=== PATIENT | male | born 1970 | race Caucasian/White ===

== ENCOUNTER 2020-09-15 05:25 | Observation (INO) ==
--- NOTE | 2020-08-29 16:31 | PAT Medication Instructions ---
Medication Instructions Date of Service August 29, 2020 Home Medications albuterol [Ventolin] 90 mcg INHALATION DAILY PRN losartan 100 mg PO PM meloxicam [Mobic] 15 mg PO DAILY mirtazapine [Remeron] 30 mg PO DAILY ASK your surgeon for instructions meloxicam [Mobic] 15 mg PO DAILY Take morning of surgery With a small sip of water, OTHERWISE NOTHING TO EAT OR DRINK AFTER MIDNIGHT: albuterol [Ventolin] 90 mcg INHALATION DAILY PRN (use if needed; please bring rescue inhaler with you to hospital day of surgery if possible) mirtazapine [Remeron] 30 mg PO DAILY Take evening before surgery albuterol [Ventolin] 90 mcg INHALATION DAILY PRN (if needed) losartan 100 mg PO PM Other Notes If you have any questions please call us at [phone] or [phone] or [phone] or [phone]
--- NOTE | 2020-08-31 14:37 | Anesthesiology Consultation ---
Date of Service August 31, 2020 Assessment & Plan (1) Encounter for pre-operative examination: COVID screening: Per assessment on 08/31: Travel screen negative, no known COVID- 19 positive contacts or current COVID-19 related symptoms. Surgeon arranging preop COVID testing. Awaiting results. Chart Review Chart Review: Acceptable Risk for Surgery and Patient seen in Pre Admission Testing Teaching & Discussion Pre-Anesthesia Teaching/Discussion Notes: Instructed NPO after midnight before surgery,except medications with 15 cc of water. Medication instructions provided according to the PAT guidelines. History Surgery Operation Date: 09/15/20 12:30 Proposed Procedures p Right Total Hip Arthroplasty Anterior - Edgar Gross DO Height/Weight Height: 5 ft 9 in Weight: 72.9 kg Allergies Allergy/AdvReac Type Severity Reaction Status Date / Time MIKE Inhibitors Allergy Intermediate Facial Verified 08/31/20 14:37 swelling cat dander Allergy Intermediate Sneezing Verified 08/28/20 15:05 nickel Allergy Mild Rash Verified 08/28/20 15:05 Medications Home Medications Medication Instructions Recorded Confirmed Last Taken albuterol [Ventolin] 90 mcg INHALATION DAILY PRN 08/28/20 08/28/20 Unknown losartan 100 mg PO PM 08/28/20 08/28/20 Unknown meloxicam [Mobic] 15 mg PO DAILY 08/28/20 08/28/20 Unknown mirtazapine [Remeron] 30 mg PO DAILY 08/28/20 08/28/20 Unknown Past Medical History Medical History Anxiety Asthma Seasonal, stable Depression Diverticular disease 2004 Hyperlipidemia Osteoarthritis 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) Exercise / Class Metabolic Activity II 4-5 Yardwork/Stairs/Walk up hill (one FS (no CP, no SOB)) Past Surgical History Surgical History History of cholecystectomy History of colon resection due to diverticulum rupture History of colonoscopy [place] teeth extracted Past Anesthesia History No Hx of Anesthesia Complications and No Family Hx of Anesthesia Complications History of PONV No Hx of PONV and No Hx of Motion Sickness Social History Smoking Status: Current every day smoker tobacco type: cigarettes Smoking cigarettes per day: 18 (tobacco use x 30 years) Do You Dip or Chew Tobacco: No Hx Alcohol Use: No Hx Substance Use: No substance use type: does not use Review of Systems Patient denies chest pain, shortness of breath, dyspnea on exertion, fever, chills, cough, wheezing, palpitations. Physical Exam Vital Signs VITALS BP 100/68- Patient reports hx low-normal BP, asymptomatic P 79 TEMP 98.7 SP02 95%RA RESP 16 PHYSICAL Full cervical extension range of motion. Full TMJ range of motion. TMD 3 finger breaths Mallampati Score 3 Dentition: upper full denture, several missing teeth on lower Lungs: clear throughout to auscultation Cardiac: regular rate and rhythm, no murmurs noted Spine: normal Carotid arteries: negative bruit Extremities: no edema Lab Results Anesthesia Preop Results Results Anesthesia Widget: WBC 11.11 K/uL (4.8-10.8) H 08/31/20 Hgb 15.1 g/dL (14.0-18.0) 08/31/20 Hct 43.4 % (42-52) 08/31/20 Plt 185 K/uL (130-400) 08/31/20 Na 139 mmol/L (136-145) 08/31/20 K 4.6 mmol/L (3.5-5.1) 08/31/20 Cl 109 mmol/L (98-107) H 08/31/20 CO2 24 mmol/L (21-32) 08/31/20 BUN 16 mg/dl (7-18) 08/31/20 Creat 0.76 mg/dl (0.6-1.4) 08/31/20 Glucose Level 96 mg/dl (70-99) 08/31/20 PT 10.7 Seconds (9.0-12.0) 08/31/20 PTT 25.4 Seconds (21.0-31.0) 08/31/20 INR 1.1 (0.9-1.1) 08/31/20 HA1c 5.6 % (4.5-5.6) 08/31/20 Blood Type A Positive 08/31/20 Antibody Screen NEGATIVE 08/31/20 Lab Comments: Elevated WBC > preop labs to be forwarded to PCP for continuity of care. Patient seeing PCP for preop evaluation prior to surgery. Testing Electrocardiogram Date: 08/31/20 NSR at 71bpm. unconfirmed report. Chest X-Ray Date: 08/31/20 FINDINGS: The cardiac and mediastinal contours are normal. There is no evidence of focal pulmonary consolidation. There is no evidence of failure. No pleural effusions are visualized.[There are surgical clips within the right upper quadrant consistent with a prior cholecystectomy. There are old rib fractures. IMPRESSION: No active disease in the chest.
--- NOTE | 2020-09-14 16:27 | History & Physical Report ---
Date of Service September 14, 2020 Assessment & Plan (1) Osteoarthritis of right hip: Plan: Schedule a right hip anterior approach CONNOR for 09.15.20. All potential risks, benefits, complications, alternatives, and rehab have been discussed with the patient and he wishes to proceed. Plan for ASA 81 mg BID x 4 wks post op for DVT prophylaxis. History of Present Illness Chief Complaint: Right hip/groin pain Primary Care Provider: Eulalio Medina MD This is a patient with a long hx of right hip and groin pain. He had been chiquis delbert conservatively for right hip DJD but has failed all conservative management. He is now being set up for a right CONNOR. Allergies Allergy/AdvReac Type Severity Reaction Status Date / Time MIKE Inhibitors Allergy Intermediate Facial Verified 08/31/20 14:37 swelling cat dander Allergy Intermediate Sneezing Verified 08/28/20 15:05 nickel Allergy Mild Rash Verified 08/28/20 15:05 Home Medications Medication Instructions Recorded Confirmed Type albuterol 90 mcg/actuation aerosol 90 mcg INHALATION DAILY PRN 08/28/20 08/28/20 History inhaler losartan 100 mg tablet 100 mg PO PM 08/28/20 08/28/20 History meloxicam 15 mg tablet (Mobic) 15 mg PO DAILY 08/28/20 08/28/20 History mirtazapine 30 mg tablet (Remeron) 30 mg PO DAILY 08/28/20 08/28/20 History Past Med/Surg History Medical History Anxiety Asthma Seasonal, stable Depression Diverticular disease 2004 Hyperlipidemia Osteoarthritis 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) Surgical History History of cholecystectomy History of colon resection due to diverticulum rupture History of colonoscopy [place] teeth extracted Social History Smoking Status: Current every day smoker Cigarettes Per Day: 18 (tobacco use x 30 years); Second Hand Exposure: No; Hx Alcohol Use: No Hx Substance Use: No Preferred Language: [place] Communication Ability: Effective Skein Dyer Required: No Beliefs That Will Affect Care: None Current Living Situation: Significant Other Feels Safe at Home: Yes Assistive Devices: Contacts, Denture - Upper and Glasses Physical Exam Constitutional: WD/WN, vitals as above ENMT: external ear and nose normal, oropharynx normal Respiratory: normal respiratory effort, lungs clear to auscultation Cardiovascular: RRR, no murmur, no edema Gastrointestinal (Abdomen): normal bowel sounds, soft, nontender, no hepatosplenomegaly Musculoskeletal: Hip: + hip ROM with crepitation (right), + joint line tenderness (right groin), + STANISLAW test positive (right) and + FADIR test positive (right); no skin erythema and no ecchymosis Skin: no rashes, warm and dry Neurologic: normal touch/pain/proprioception Psychiatric: A+Ox3, euthymic affect Speech: normal rate/rhythm/volume of speech Lymphatic: no cervical or axillary lymphadenopathy
[2020-09-15] MEDS ORDERED: ceFAZolin 1000MG 1,000 MG/7.5 ML SYR IV SCH (06:00)
[2020-09-15] MEDS ORDERED: ROPIVACAINE 0.5% HCL/PF 150 MG, BUPIVACAINE 0.75% MPF 20 ML, EPINEPHrine 30MG/30ML (OR ... INSTIL SCH (06:00)
[2020-09-15] MEDS ORDERED: CeleBREX 200 MG CAP PO SCH (06:00)
[2020-09-15] MEDS ORDERED: ACETAMINOPHEN 500 MG TAB PO SCH (06:00)
[2020-09-15] MEDS ORDERED: LR 500ML BOLUS, THEN 15ML/HR IV SCH (06:00)
[2020-09-15] MEDS ORDERED: FAMOTIDINE 20 MG TAB PO SCH (06:00)
[2020-09-15] MEDS ORDERED: dexAMETHasone 4 MG TAB PO SCH (06:00)
[2020-09-15] MEDS ORDERED: GABAPENTIN 900 MG DOSE PO SCH (06:00)
[2020-09-15] MEDS ORDERED: METOCLOPRAMIDE HCL 10 MG TABLET PO SCH (06:00)
[2020-09-15] MEDS ORDERED: BUPIVACAINE 0.5 % 5 MG/1 ML PF 10ML VIAL ONE (06:24)
[2020-09-15] MEDS ORDERED: GLYCOPYRROLATE 0.2 MG/ML VIAL ONE (06:57)
[2020-09-15] MEDS ORDERED: PROPOFOL IV EMULSION 10 MG/ML 20 ML VIAL IV ONE ×8 (06:57→11:16)
[2020-09-15] MEDS ORDERED: LIDOCAINE 2% 2 ML VIAL/AMP(20MG/ML) INFIL ONE (06:57)
[2020-09-15] MEDS ORDERED: MIDAZOLAM HCL 1 MG/ML 2ML VIAL ONE ×2 (06:57→10:22)
[2020-09-15] MEDS ORDERED: fentaNYL citrate 100 MCG/2 ML VIAL ONE ×2 (06:58→10:48)
--- NOTE | 2020-09-15 07:17 | History & Physical Bridge Note ---
Date of Service September 15, 2020 History & Physical Bridge Note I have examined the patient, reviewed the History & Physical and in the interval since the performance of the History & Physical I have noted the following changes of clinical significance: no changes noted
[2020-09-15] MEDS ORDERED: ORTHO JOINT ANESTHETIC ONE (07:37)
[2020-09-15] MEDS ORDERED: ePHEDrine sulfate 50 MG/ML AMP IV PRN (07:49)
[2020-09-15] MEDS ORDERED: ATROPINE SULFATE 0.1 MG/ML 10ML SYR IV PRN (07:49)
[2020-09-15 08:26] LABS: Appearance Urine Clear (Clear); Blood Urine Negative (Negative); Color Urine Dark Yellow; Glucose Urine UA Negative (Negative); Ketones Urine Trace (Negative); Leukocyte Esterase Urine Negative (Negative); Nitrite Urine Negative (Negative); Protein Urine Negative (Negative); Specific Gravity Urine 1.032 (1.000-1.030); Urobilinogen Urine Negative (Negative); pH Urine 5.5 (4.5-7.5)
[2020-09-15 08:27] LABS: Bilirubin Urine 1+ (Negative)
[2020-09-15] MEDS ORDERED: ePHEDrine sulfate 50 MG/ML SYR ONE (09:13)
--- NOTE | 2020-09-15 11:12 | Post Operative Brief Note ---
Immediate Post Op Note v1 Date of Surgery September 15, 2020 Pre & Post Diagnosis Operation Date: 09/15/20 07:15 Pre-Op Diagnosis: Unilateral Primary Osteoarthritis, Right Hip Post-Op Diagnosis: Unilateral Primary Osteoarthritis, Right Hip I identified the patient and participated in the time-out.: Yes Procedure Operation Date: 09/15/20 07:15 Actual Procedures p Right Total Hip Arthroplasty Anterior(Right) - Edgar Gross DO Surgeon Christian Gross DO Electronic Field Service Engineer Severiano Bergeron DO and Edgar Mayberry PA-C Estimated Blood Loss 150 Findings Consistent with Post-Op Diagnosis Fluids See anesthesia report Anesthesia Type Spinal MAC Complications none Disposition Disposition: Recovery Room Overlapping Procedure I was present for: the critical portions of procedure. I was immediately available: during the entire case. Back up surgeon: was not required during procedure.
--- NOTE | 2020-09-15 11:16 | Operative Report ---
Post Operative Report Pre & Post Diagnosis Operation Date: 09/15/20 07:15 Pre-Op Diagnosis: Unilateral Primary Osteoarthritis, Right Hip Post-Op Diagnosis: Unilateral Primary Osteoarthritis, Right Hip I identified the patient and participated in the time-out.: Yes Procedure Operation Date: 09/15/20 07:15 Actual Procedures p Right Total Hip Arthroplasty Anterior(Right) - Edgar Gross DO Surgeon Edgar Gross DO Pin Feather Machine Operator Severiano Bergeron DO and Edgar Mayberry PA-C Estimated Blood Loss 150 Findings Consistent with Post-Op Diagnosis Fluids See anesthesia report Specimens Femoral head Anesthesia Type Spinal MAC Complications none Disposition Disposition: Recovery Room Indications The patient is a 50-year-old male who presents with severe progressive right hip DJD who has failed outpatient conservative treatments. I indicated the patient for a anterior total hip replacement and the risks and benefits were explained in detail which include but not limited to infection, bleeding, blood clot, damage to surrounding bone, nerves, vessels, soft tissue, hip dislocation, failure of the prosthesis, leg length discrepancy, need for additional surgery and . The patient agreed to proceed with replacement of the hip and informed consent was obtained. Appropriate clearances were obtained. Description of Procedure COMPONENTS USED: Leslie [employer] Nephew R3 acetabulum size 52 , Eugenie Biomet Avenir femur size 4 high offset, femoral head 36-3.5 ceramic, liner 52x36, acetabular screw 35 mm x 1, 25 mm x 1. DESCRIPTION OF PROCEDURE: Following satisfactory spinal anesthesia, the patient was placed supine on the OR table. The left leg was placed in the well leg jauregui and the right leg in the traction device. The right leg was prepared with ChloraPrep and draped sterilely. A surgical timeout was performed, patient identified and site gabby verified. Appropriate antibiotics were given. A standard anterior approach in the interval between the sartorius and tensor muscles was performed. Dissection was carried down through subcutaneous tissues. Electrocautery was utilized for hemostasis. Circumflex femoral v essels were identified and ligated. The anterior capsular fat pad was removed and the capsulotomy was performed revealing the arthritic femoral neck and head. A femoral neck cut was made with reciprocating saw and the bone fragments removed. The acetabular self-retraining retractor was placed. Acetabular reaming was completed under fluoroscopic guidance, a 52 shell was impacted into an anatomic position and secured with a acetabular screw. Local anesthetic was placed and following irrigation, the polyethylene liner was placed. Next exposure to the proximal femur was obtained and the femur was placed into position of external rotation, extension and adduction. Femoral canal was prepared up to the size 4 high offset. Trial reduction with a 36-3.5 neck length head showed good soft tissue tension, leg lengths restored, and good fit and fill of the proximal canal using fluoroscopic landmarks. The hip was dislocated. The trial component was removed. The final implant was placed. The hip was irrigated with sterile saline solution and reduced. A Betadine soak was performed. After 3 minutes, the hip was once more irrigated with copious sterile saline solution with bacitracin. Cyndee-incisional soft tissue was injected utilizing [place] Orthomix which includes a combination of Ropivicaine 0.5% 150mg, Bupivicaine 0.5%/Epinephrine 1:200,000 30ml, Toradol 30mg, Dexamethasone 4mg, Ketamine 10mg, Clonidine 100mcg and NSS 30ml solution. The capsule was then closed with 1-0 Vicryl interrupted figure of eight sutures. The fascia was closed with a running suture of #1 Vicryl, the subcutaneous tissues with 2-0 Vicryl and the skin was closed with ihsan and a sterile dry dressing was applied which included brigida incisional VAC. The patient tolerated the procedure well and was transported to PACU in stable condition. Due to the complex nature of the procedure, the entire surgery was performed with the operational assistance of Severiano Bergeron DO and Edgar Mayberry PA-C. The assistant director of security, under direct supervision, was involved in the actual performance of all aspects of the surgical procedure including patient positioning, hemostasis, tissue retraction, instrument management and wound closure. I attest to the content of the Intraoperative Record and any orders documented therein. Any exceptions are noted below.
--- NOTE | 2020-09-15 11:21 | Post Operative Brief Note ---
Immediate Post Op Note v1 Date of Surgery September 15, 2020 Pre & Post Diagnosis Operation Date: 09/15/20 07:15 Pre-Op Diagnosis: Unilateral Primary Osteoarthritis, Right Hip Post-Op Diagnosis: Unilateral Primary Osteoarthritis, Right Hip I identified the patient and participated in the time-out.: Yes Procedure Operation Date: 09/15/20 07:15 Actual Procedures p Right Total Hip Arthroplasty Anterior using Leslie [employer] Nephew acetabular shell and HDPE liner, Eugenie stem and ceramic head (Right) - Edgar Gross DO Surgeon Edgar Gross DO Strategic Planning Consultant Severiano Bergeron DO and Edgar Mayberry PA-C Estimated Blood Loss 150 Findings Consistent with Post-Op Diagnosis Specimens Bone and tissue right hip Anesthesia Type Spinal MAC Complications none Disposition Accompanied Patient To Recovery: No
--- NOTE | 2020-09-15 11:27 | Fluoroscopy Report ---
FL hip RT 1V HISTORY: 50 years-old Male RIGHT ANTERIOR TOTAL HIP right hip total joint arthroplasty COMPARISON: None TECHNIQUE: 2 spot fluoroscopic images of the right hip were obtained utilizing 1 minute and 22.9 seco nds fluoroscopy time FINDINGS: Right hip total joint arthroplasty. No unexpected opaque foreign body or acute fracture identified. L eft hip osteoarthritis. IMPRESSION: Fluoroscopic assistance as above. ACT 112: Negative or not required by law. The above report was generated using voice recognition software. It may contain grammatical, syntax o r spelling errors. Electronically signed by: Bulmaro Felder M.D. 09/15/2020 11:26 AM
[2020-09-15] MEDS ORDERED: fentaNYL citrate 100 MCG/2 ML VIAL IV PRN (11:59)
--- NOTE | 2020-09-15 12:11 | XRay Report ---
XR hip 1V RT w pelvis HISTORY: 50 years-old Male IN PACU - A/P PELVIS and LATERAL HIP right hip total joint arthroplasty COMPARISON: Fluoroscopic images of the right hip of same day TECHNIQUE: AP view of the pelvis with crosstable lateral view of the right hip FINDINGS: Right hip total joint arthroplasty. No acute fracture, malalignment or opaque foreign body. Lateral s kin ihsan are present in addition to expected postoperative soft tissue swelling with deep tissue a ir. Moderate left hip osteoarthritis. IMPRESSION: Right hip total joint arthroplasty with expected postoperative changes. ACT 112: Negative or not required by law. The above report was generated using voice recognition software. It may contain grammatical, syntax o r spelling errors. Electronically signed by: Bulmaro Felder M.D. 09/15/2020 12:10 PM
--- NOTE | 2020-09-15 12:28 | Anesthesiology Progress Note ---
Date of Service September 15, 2020 Anesthesia Post Procedure Vital Signs Vital Signs: Temp Pulse Pulse Resp BP BP Pulse Ox 09/15/20 12:10 72 13 90/62 L 96 09/15/20 12:00 68 15 95/61 L 96 09/15/20 11:50 73 16 99/66 L 96 09/15/20 11:42 35.9 C L 80 13 102/66 96 09/15/20 05:38 36.9 C 62 18 119/81 99 Pain Intensity Right Hip: Pain Intensity: 2 Transfer of Care Handoff Completed per policy Notes Mental Status: alert / awake / arousable and participated in evaluation Nausea / Vomiting: adequately controlled Pain: adequately controlled Airway Patency, RR, SpO2: stable & adequate BP & HR: stable & adequate Hydration State: stable & adequate Neuraxial Anesthesia: was administered and sensory block is resolving Anesthetic Complications: no major complications apparent and Pt Satisfied with anesthetic care
[2020-09-15] MEDS ORDERED: ONDANSETRON INJ 2 MG/ML 2 ML VIAL IV PRN (13:03)
[2020-09-15] MEDS ORDERED: ALUMINUM/MAGNESIUM SUSP 30 ML UDC PO PRN (13:03)
[2020-09-15] MEDS ORDERED: METOCLOPRAMIDE HCL INJ 5 MG/ML 2 ML VIAL IV PRN (13:03)
[2020-09-15] MEDS ORDERED: MAGNESIUM HYDROXIDE SUSP 30 ML UDC PO PRN (13:03)
[2020-09-15] MEDS ORDERED: NALOXONE HCL 0.4 MG/1 ML VIAL/CARP IV PRN (13:03)
[2020-09-15] MEDS ORDERED: oxyCODONE HCL IR 5 MG TAB (IMMEDIATE RELEASE) PO PRN (13:03)
[2020-09-15] MEDS ORDERED: bisacodyL 10 MG SUPP PR PRN (13:03)
[2020-09-15] MEDS ORDERED: diphenhydrAMINE Capsule 25 MG CAP PO PRN (13:03)
[2020-09-15] MEDS ORDERED: ALBUTEROL HFA 8 GM INHALER INH PRN (13:35)
[2020-09-15] MEDS: SODIUM CHLORIDE 0.9% 1000ML 1,000 ML IV SCH (14:16)
[2020-09-15] MEDS: KETOROLAC TROMETHAMINE 15 MG/ML VIAL IV PRN (14:20)
[2020-09-15] MEDS: ACETAMINOPHEN 500 MG TAB PO SCH ×2 (14:22→20:59)
[2020-09-15] MEDS: ceFAZolin 1000MG 1,000 MG/7.5 ML SYR IV SCH (16:19)
[2020-09-15] MEDS: DOCUSATE SODIUM 100 MG CAP PO SCH (19:47)
[2020-09-15] MEDS: ASPIRIN 81 MG ECTAB PO SCH (19:48)
[2020-09-15] MEDS: HYDROmorphone INJ 0.5 MG/0.5 ML SYR IV PRN (20:59)
[2020-09-15] MEDS ORDERED: LOSARTAN POTASSIUM 50 MG TAB PO SCH (21:00)
[2020-09-15] MEDS ORDERED: SENNA 8.6 MG TAB PO SCH (21:00)
[2020-09-16] MEDS: ceFAZolin 1000MG 1,000 MG/7.5 ML SYR IV SCH (01:10)
[2020-09-16] MEDS: SODIUM CHLORIDE 0.9% 1000ML 1,000 ML IV SCH (01:10)
[2020-09-16] MEDS: KETOROLAC TROMETHAMINE 15 MG/ML VIAL IV PRN ×2 (01:19→08:31)
[2020-09-16] MEDS: HYDROmorphone INJ 0.5 MG/0.5 ML SYR IV PRN (01:19)
[2020-09-16] MEDS: ACETAMINOPHEN 500 MG TAB PO SCH (05:42)
[2020-09-16 06:27] LABS: Basophils # (auto) 0.03 K/uL (0-0.2); Basophils % (auto) 0.2 %; Eosinophils # (auto) 0.01 K/uL (0-0.5); Eosinophils % (auto) 0.1 %; Hematocrit (blood only) 31.2 % (42-52); Hemoglobin 10.5 g/dL (14.0-18.0); Immature Granulocytes # (auto) 0.02 K/uL (0.00-0.02); Immature Granulocytes % (auto) 0.2 %; Lymphocytes # (auto) 1.57 K/uL (1.2-3.4); Lymphocytes % (auto) 12.4 %; Mean Corpuscular Hemoglobin 32.2 pg (25-34); Mean Corpuscular Hgb Conc 33.7 g/dL (32-36); Mean Corpuscular Volume 95.7 fL (80-100); Mean Platelet Volume 11.3 fL (7.4-10.4); Monocytes # (auto) 0.95 K/uL (0.11-0.59); Monocytes % (auto) 7.5 %; Neutrophils # (auto) 10.04 K/uL (1.4-6.5); Neutrophils % (auto) 79.6 %; Platelet Count 132 K/uL (130-400); RDW Coefficient of Variation 12.7 % (11.5-14.5); RDW Standard Deviation 44.4 fL (36.4-46.3); Red Blood Count 3.26 M/uL (4.7-6.1); White Blood Count 12.62 K/uL (4.8-10.8)
[2020-09-16 07:01] LABS: BUN Creatinine Ratio 28.4 (10-20); Calcium 8.2 mg/dl (8.5-10.1); Creatinine Clr Calc Pharmacy 116.5 ml/min; Est GFR (African American) 123.1 ml/min; Est GFR (Non-African American) 106.2 ml/min; Potassium 4.1 mmol/L (3.5-5.1)
--- NOTE | 2020-09-16 07:24 | Orthopedic Progress Note ---
Date of Service September 16, 2020 Assessment & Plan (1) History of total right hip arthroplasty: Plan: POD #1 s/p right anterior total hip arthroplasty pt/ot dvt proph with RACHEL/SCD/ASA plan for d/c home with home health Admission and Anticipated Discharge Date Admission Date: September 15, 2020 Subjective POD #1 s/p Right anterior total hip arthroplasty Review of Systems Constitutional: no fever, no chills and no sweats Respiratory: no cough and no dyspnea Cardiovascular: no chest pain and no dyspnea Gastrointestinal: no abdominal pain, no nausea and no vomiting Physical Exam Physical Exam: Vital Signs Temp Pulse Pulse Resp BP BP Pulse Ox 09/16/20 05:41 84/50 L 09/16/20 02:58 82/52 L 09/16/20 02:57 36.6 C 68 16 78/39 L 94 09/15/20 23:29 36.7 C 61 14 91/54 L 95 09/15/20 18:52 37.0 C 71 16 103/57 L 97 09/15/20 15:05 36.6 C 67 16 99/69 L 96 09/15/20 13:00 36.6 C 64 18 100/68 99 09/15/20 12:40 61 19 91/54 L 96 09/15/20 12:30 36.3 C L 58 L 18 94/59 L 98 09/15/20 12:20 67 15 92/55 L 97 09/15/20 12:10 72 13 90/62 L 96 09/15/20 12:00 68 15 95/61 L 96 09/15/20 11:50 73 16 99/66 L 96 09/15/20 11:42 35.9 C L 80 13 102/66 96 Intake and Output 09/15/20 09/16/20 09/16/20 22:59 06:59 14:59 Intake Total 350 / 3550 1000 / 3550 Output Total 375 / 825 300 / 825 Balance - / 2725 700 / 2725 Intake: IV 1000 / 1000 Sodium Chlorid e 0.9% 1000ML 1, 1000 / 1000 000 ml @ 100 m ls/hr IV .Q10H RODO Rx#:[id number] 17 Oral 350 / 350 Output: Urine 375 / 675 300 / 675 Musculoskeletal: Right Leg: NVDI, calf SNT, negative shauna sign. DP palpable, able to wiggle toes/ankle movement without difficulty. dressing clean dry and intact. ANA anterior hip clean and dry Results & Data ([facility]) Vital Signs (Past 12 Hours) Vital Signs Temp Pulse Resp BP BP Pulse Ox 09/16/20 05:41 84/50 L 09/16/20 02:58 82/52 L 09/16/20 02:57 36.6 C 68 16 78/39 L 94 09/15/20 23:29 36.7 C 61 14 91/54 L 95 Diagnostic Findings Laboratory Results WBC 12.62 K/uL (4.8-10.8) H 09/16/20 06:08 RBC 3.26 M/uL (4.7-6.1) L 09/16/20 06:08 Hgb 10.5 g/dL (14.0-18.0) L 09/16/20 06:08 Hct 31.2 % (42-52) L 09/16/20 06:08 MCV 95.7 fL (80-100) 09/16/20 06:08 MCH 32.2 pg (25-34) 09/16/20 06:08 MCHC 33.7 g/dL (32-36) 09/16/20 06:08 RDW Std Deviation 44.4 fL (36.4-46.3) 09/16/20 06:08 RDW Coeff of [place] 12.7 % (11.5-14.5) 09/16/20 06:08 Plt Count 132 K/uL (130-400) 09/16/20 06:08 MPV 11.3 fL (7.4-10.4) H 09/16/20 06:08 Immature Gran % (Auto) 0.2 % 09/16/20 06:08 Neut % (Auto) 79.6 % 09/16/20 06:08 Lymph % (Auto) 12.4 % 09/16/20 06:08 [place] % (Auto) 7.5 % 09/16/20 06:08 Eos % (Auto) 0.1 % 09/16/20 06:08 Baso % (Auto) 0.2 % 09/16/20 06:08 Neut # (Auto) 10.04 K/uL (1.4-6.5) H 09/16/20 06:08 Lymph # (Auto) 1.57 K/uL (1.2-3.4) 09/16/20 06:08 [place] # (Auto) 0.95 K/uL (0.11-0.59) H 09/16/20 06:08 Eos # (Auto) 0.01 K/uL (0-0.5) 09/16/20 06:08 Baso # (Auto) 0.03 K/uL (0-0.2) 09/16/20 06:08 Immature Gran # (Auto) 0.02 K/uL (0.00-0.02) 09/16/20 06:08 Sodium 140 mmol/L (136-145) 09/16/20 06:08 Potassium 4.1 mmol/L (3.5-5.1) 09/16/20 06:08 Chloride 112 mmol/L (98-107) H 09/16/20 06:08 Carbon Dioxide 23 mmol/L (21-32) 09/16/20 06:08 Anion Gap 5.0 (3-11) 09/16/20 06:08 BUN 21 mg/dl (7-18) H 09/16/20 06:08 Creatinine 0.75 mg/dl (0.6-1.4) 09/16/20 06:08 Est Cr Clr Drug Dosing 116.5 ml/min 09/16/20 06:08 Est GFR ( Amer) 123.1 ml/min 09/16/20 06:08 Est GFR (Non-Af Amer) 106.2 ml/min 09/16/20 06:08 BUN/Creatinine Ratio 28.4 (10-20) H 09/16/20 06:08 Glucose 105 mg/dl (70-99) H 09/16/20 06:08 Calcium 8.2 mg/dl (8.5-10.1) L 09/16/20 06:08 Urine Color Dark Yellow 09/15/20 Unknown Urine Appearance Clear (Clear) 09/15/20 Unknown Urine pH 5.5 (4.5-7.5) 09/15/20 Unknown Ur Specific [place] 1.032 (1.000-1.030) H 09/15/20 Unknown Urine Protein Negative (Negative) 09/15/20 Unknown Urine Glucose (UA) Negative (Negative) 09/15/20 Unknown Urine Ketones Trace (Negative) H 09/15/20 Unknown Urine Blood Negative (Negative) 09/15/20 Unknown Urine Nitrite Negative (Negative) 09/15/20 Unknown Urine Bilirubin 1+ (Negative) H 09/15/20 Unknown Urine Urobilinogen Negative (Negative) 09/15/20 Unknown Ur Leukocyte Esterase Negative (Negative) 09/15/20 Unknown COVID-19 Eval Order Covid19 IDNow [facility] 09/15/20 05:36 SARS-CoV-2, RNA, NAAT NEGATIVE (NEGATIVE) 09/15/20 05:36 Impressions Hip X-Ray 09/15/20 07:00 FL hip RT 1V HISTORY: 50 years-old Male RIGHT ANTERIOR TOTAL HIP right hip total joint arthroplasty COMPARISON: None TECHNIQUE: 2 spot fluoroscopic images of the right hip were obtained utilizing 1 minute and 22.9 seconds fluoroscopy time FINDINGS: Right hip total joint arthroplasty. No unexpected opaque foreign body or acute fracture identified. Left hip osteoarthritis. IMPRESSION: Fluoroscopic assistance as above. ACT 112: Negative or not required by law. The above report was generated using voice recognition software. It may contain grammatical, syntax or spelling errors. Electronically signed by: Bulmaro Felder M.D. 09/15/2020 11:26 AM Hip/Pelvis X-Ray 09/15/20 11:42 XR hip 1V RT w pelvis HISTORY: 50 years-old Male IN PACU - A/P PELVIS and LATERAL HIP right hip total joint arthroplasty COMPARISON: Fluoroscopic images of the right hip of same day TECHNIQUE: AP view of the pelvis with crosstable lateral view of the right hip FINDINGS: Right hip total joint arthroplasty. No acute fracture, malalignment or opaque foreign body. Lateral skin ihsan are present in addition to expected postoperative soft tissue swelling with deep tissue air. Moderate left hip osteoarthritis. IMPRESSION: Right hip total joint arthroplasty with expected postoperative changes. ACT 112: Negative or not required by law. The above report was generated using voice recognition software. It may contain grammatical, syntax or spelling errors. Electronically signed by: Bulmaro Felder M.D. 09/15/2020 12:10 PM
[2020-09-16] MEDS: DOCUSATE SODIUM 100 MG CAP PO SCH (08:33)
[2020-09-16] MEDS: ASPIRIN 81 MG ECTAB PO SCH (08:34)
[2020-09-16] MEDS ORDERED: MIRTAZAPINE TAB 15 MG TAB PO SCH (09:00)
[2020-09-16] MEDS ORDERED: MULTIVITAMIN TAB PO SCH (09:00)
[2020-09-16] MEDS ORDERED: CeleBREX 200 MG CAP PO SCH (21:00)
--- NOTE | 2020-09-20 11:40 | Discharge Summary ---
Date of Service September 20, 2020 Admission HPI Per Admitting Provider This is a patient with a long hx of right hip and groin pain. He had been treated conservatively for right hip DJD but has failed all conservative management. He is now being set up for a right CONNOR. Principal Diagnosis right hip osteoarthritis Discharge Exam Constitutional WD/WN, vitals as above ENMT external ear and nose normal, oropharynx normal Respiratory normal respiratory effort, lungs clear to auscultation Cardiovascular RRR, no murmur, no edema Gastrointestinal (Abdomen) normal bowel sounds, soft, nontender, no hepatosplenomegaly Musculoskeletal Hip: + surgical incision (right anterior hip with ANA in place and functioning); no skin erythema, no ecchymosis, no crepitation with hip ROM (right) and no joint line tenderness (right groin) Skin no rashes, warm and dry Neurologic normal touch/pain/proprioception Psychiatric A+Ox3, euthymic affect Speech: normal rate/rhythm/volume of speech Lymphatic no cervical or axillary lymphadenopathy Discharge Data Allergies Allergy/AdvReac Type Severity Reaction Status Date / Time MIKE Inhibitors Allergy Intermediate Facial Verified 09/15/20 05:33 swelling cat dander Allergy Intermediate Sneezing Verified 09/15/20 05:33 nickel Allergy Mild Rash Verified 09/15/20 05:33 Procedures Performed Operation Date: 09/15/20 07:15 Actual Procedures p Right Total Hip Arthroplasty Anterior(Right) - Edgar Gross DO Ordered Studies 09/15/20 07:00 FL hip RT 1V Routine Hospital Course (1) History of total right hip arthroplasty: Patient was admitted and underwent the noted procedure. He ambulated in the evening of POD #0. He was doing well with PT and pain control on POD #1 and was discharged home later on POD #1. POD #1 s/p right anterior total hip arthroplasty pt/ot dvt proph with RACHEL/SCD/ASA plan for d/c home with home health Total Time Total Time Spent Total Time Spent (In Minutes): 20 Discharge Plan Discharge Items Patient Disposition: Home - Home Health Services Reason For Visit: Unilateral Primary Osteoarthritis, Right Hip Discharge Diagnosis: Right hip osteoarthritis Condition on Discharge: Good Activity: Per Instructions section Lifting: Wait until after follow-up appointment Exercise/Sports: Wait until after follow-up appointment Weightbearing Comment: WBAT with walker Non-emergency contact: Surgeon Call non-emergency contact if: your pain is not controlled, your pain is worsening and your temperature is above 101 Follow-up/Referrals: Eulalio Medina MD [Primary Care Provider] - Diet: Regular Addtl Attending Provider Instructions: ACTIVITY RECOMMENDATIONS: SELF CARE INSTRUCTIONS AFTER TOTAL HIP REPLACEMENT : Direct Anterior Approach Until the incision and soft tissues around your hip have healed, there is a poss ibility that the hip prosthesis could dislocate. A. Hip flexion ( Up & Down out of chair or steps ) may be difficult. This is normal. B. Numbness in front of the thigh is also normal for a few weeks. C. Use hand rails when walking on stairs. D. Wear low heeled shoes with non-slip soles. E. Be sure that your floors are free of things that could trip you - throw rugs, electrical cords, small objects. Avoid wet and waxed floors, especially with crutches and canes. F. Try to walk several times a day with rest periods between. G. Continue with all the exercises taught to you in the hospital. Again, make walking a part of your daily routine. SPECIAL CARE INSTRUCTIONS: VERY IMPORTANT TO READ AND REVIEW A. You may still be at risk for phlebitis and blood clots. 1. Wear surgical stockings (RACHEL hose) for 2 weeks after surgery to improve circulation and reduce swelling. 2. Take Aspirin 81mg twice daily for 4 weeks or as directed by your doctor. This is your blood thinner. 3. High risk patients may be prescribed a stronger blood thinner if necessary. 4. If you are on Coumadin normally, your family doctor/entry level accounting clerk should monitor your blood work. Expect a phone call the day of or the day after bloodwork is drawn to adjust your dosage. B. You must take antibiotics before having dental work, bladder, bowel and other surgery. Your doctor will provide you with a permanent card to carry describing precautions. C. Call [facility] if you have a fever, redness or swelling around the incision, cloudy drainage from incision, or sudden increase in pain in your hip, not relieved by your regular pain medication. D. Please call the office at if you have any concerns or questions about your operation or recovery. * YOU MAY SHOWER, NO TUB BATHS UNTIL CLEARED BY YOUR DOCTOR. - Keep an extra close eye on the top portion of your incision. Be sure to keep clean & dry. * WEAR RACHEL HOSE 20 HOURS PER DAY FOR 2 WEEKS. * YOU MAY PROGRESS FROM A WALKER, TO A CANE, TO INDEPENDENT AT YOUR OWN PACE. * MOST PATIENTS WILL HAVE HOME NURSING FOR THERAPY. IF YOU DECIDE TO DO OUTPATIENT PHYSICAL THERAPY, PLEASE SCHEDULE THIS 3 TIMES PER WEEK. * ANA dressing: You have a ANA dressing on your surgical wound. It will remain in place for 7 days from surgery. You will be provided with a booklet with the do's and don'ts with the dressing in place. After 7 days, the dressing may be removed. If there is drainage from the surgical incision, you may cover the wound with dry dressings. FOLLOW UP VISIT: If appointment is not already scheduled: Please call [facility] to make a follow-up appointment for 2 weeks after your surgery at . Pending Studies at Discharge: No Stand-Alone Forms: My [email or web address], Smoking Cessation Medications and DC Order Prescriptions: New acetaminophen [Tylenol Extra Strength] 500 mg Tablet 1,000 mg PO Q8 21 Days Qty: 126 RF: 0 aspirin 81 mg Tablet,Delayed Release (Dr/Ec) 81 mg PO BID 30 Days Qty: 60 RF: 0 celecoxib [Celebrex] 200 mg Capsule 200 mg PO BID 30 Days Qty: 60 RF: 0 oxycodone 5 mg Tablet 5 - 10 mg PO Q6H PRN (Reason: pain) Qty: 30 RF: 0 docusate sodium 100 mg Capsule 100 mg PO BID 10 Days Qty: 20 RF: 0 cefadroxil 500 mg capsule 500 mg PO BID 14 Days Qty: 28 RF: 0 Continued mirtazapine [Remeron] 30 mg Tablet 30 mg PO DAILY RF: 0 losartan 100 mg Tablet 100 mg PO PM RF: 0 albuterol 90 mcg/actuation Aerosol 90 mcg INHALATION DAILY PRN (Reason: Wheezing) RF: 0 Discontinued meloxicam [Mobic] 15 mg Tablet 15 mg PO DAILY RF: 0 Discharge Orders: Discharge Order (Routine); Ordered 09/16/20 Ordered By: Surya Nagel/Other Patient Handouts: How Your Hip Works, Osteoarthritis: Tips for Daily Living, ED Osteoarthritis Admission Data Admit Date/Time: 09/15/20 11:42 Attending Provider: Edgar Gross Admit Provider: Edgar Gross Primary Care Provider: Eulalio Medina Other Providers: [facility],Home Healthcare Other Interventions: Discharge Summary Assessment (RN) Last Done: 09/16/20 10:11
== END 2020-09-16 15:54 | disposition home health service (06) ==
LOC: 3N 05:25 → ASU 05:25